=== PATIENT | female | born 1995 ===

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

== ENCOUNTER 2017-03-06 14:19 | Emergency (ER) | payer BC ==
[2017-03-06 14:27] VITALS: TEMP 98.1; O2SAT 98
[2017-03-06 15:12] LABS: RBC URINE 3 /hpf (0-3); URINE BILIRUBIN NEGATIVE (NEGATIVE); URINE BLOOD NEGATIVE (NEGATIVE); URINE COLOR Yellow (YELLOW); URINE GLUCOSE (UA) NORMAL (Normal); URINE KETONE NEGATIVE (NEGATIVE); URINE LEUKOCYTE ESTERASE NEG Leu/uL (Negative); URINE PROTEIN NEGATIVE (NEGATIVE); URINE UROBILINOGEN NORMAL mg/dL (0.2-1.0); WBC URINE 3 /hpf (0-5)
--- NOTE | 2017-03-06 15:41 | C.PDOC ---
Time Seen by Provider: 03/06/17 14:32 Chief Complaint (Nursing): Back Pain History Per: Patient Onset/Duration Of Symptoms: Days (1) Current Symptoms Are (Timing): Still Present Quality Of Discomfort: "Pain" Severity: Moderate Previous Symptoms: None Associated Symptoms: None Exacerbating Factor(s): Movement Additional History Per: Prior Records Past Medical History Reviewed: Historical Data, Nursing Documentation, Vital Signs Vital Signs: Last Vital Signs Temp 98.1 F 03/06/17 14:23 Pulse 77 03/06/17 14:23 Resp 18 03/06/17 14:23 BP 113/77 03/06/17 14:23 Pulse Ox 98 03/06/17 14:23 - Medical History PMH: Migraine Surgical History: No Surg Hx Family History: States: Unknown Family Hx - Social History Hx Tobacco Use: No Hx Alcohol Use: No Hx Substance Use: No - Immunization History Hx Tetanus Toxoid Vaccination: No Hx Influenza Vaccination: No Hx Pneumococcal Vaccination: No Review Of Systems Except As Marked, All Systems Reviewed And Found Negative. Constitutional: Negative for: Fever, Weakness Cardiovascular: Negative for: Chest Pain Respiratory: Negative for: Shortness of Breath Gastrointestinal: Negative for: Vomiting, Abdominal Pain, Diarrhea Genitourinary: Negative for: Dysuria, Hematuria Musculoskeletal: Positive for: Back Pain. Negative for: Neck Pain Skin: Negative for: Rash Neurological: Negative for: Weakness, Numbness, Seizures, Altered Mental Status Physical Exam - Physical Exam Appears: Non-toxic, No Acute Distress Skin: Normal Color, Warm, Dry, No Rash Head: Atraumatic, Normacephalic Eye(s): bilateral: Normal Inspection, PERRL, EOMI Neck: Normal ROM, Supple Cardiovascular: Rhythm Regular Respiratory: Normal Breath Sounds, No Accessory Muscle Use Gastrointestinal/Abdominal: Soft, No Tenderness, No Mass Back: Normal Inspection, Paraspinal Tenderness Extremity: Normal ROM Neurological/Psych: Oriented x3, Normal Motor, Normal Sensation ED Course And Treatment - Laboratory Results Urine POC: Negative O2 Sat by Pulse Oximetry: 98 Pulse Ox Interpretation: Normal Reassessment Condition: Improved Disposition Counseled Patient/Family Regarding: Studies Performed, Diagnosis, Need For Followup, Rx Given - Disposition Disposition: HOME/ ROUTINE Disposition Time: 15:39 Condition: IMPROVED Additional Instructions: Follow up with your doctor for further evaluation and treatment. Return to the ER if you develop abdominal pain, trouble urinating, weakness, numbness, worsening of symptoms or if you have any other concerns. Prescriptions: Cyclobenzaprine [Cyclobenzaprine HCl] 10 mg PO TID PRN #15 tab PRN Reason: Muscle Spasm Ibuprofen [Motrin Tab] 600 mg PO Q8 PRN #30 tab PRN Reason: Pain, Moderate (4-7) Instructions: Back Pain (ED) Forms: [employer] (Urdu) Print Language: CROATIAN - Clinical Impression Clinical Impression: Back strain
[2017-03-06 15:52] VITALS: BP 116/84; PULSE 74; RESP 16
== END 2017-03-06 15:52 | disposition home or self-care (01) ==
LOC: C.ER 14:19
DX: S39.012A Strain of muscle, fascia and tendon of lower back, initial encounter (principal); X58.XXXA Exposure to other specified factors, initial encounter

== ENCOUNTER 2017-05-01 18:11 | Emergency (ER) | payer BC, OTHER ==
[2017-05-01 18:15] VITALS: BMI 28.7
[2017-05-01 18:29] VITALS: BP 120/77; RESP 18; TEMP 98.2
--- NOTE | 2017-05-01 19:11 | C.PDOC ---
History Of Present Illness 22yo female, presents to the ED complaining of right lower jaw pain, present for the past 4 days. Patient reports she had an infected tooth removed this past Sunday and since the next day, she has been having right sided jaw pain, ear pain and face pain. Patient states she has been taking 2 tablets of Tylenol 2x per day with no relief of symptoms. Additionally states she has not called or visited her dentist regarding her symptoms. She states she has also recently finished her prescribed amoxicillin course. Patient denies any fever, chills. She offers no other medical complaints. Time Seen by Provider: 05/01/17 18:34 Chief Complaint (Nursing): Headache History Per: Patient History/Exam Limitations: no limitations Onset/Duration Of Symptoms: Days Current Symptoms Are (Timing): Still Present Severity: Moderate Quality: "Pain" Past Medical History Reviewed: Historical Data, Nursing Documentation, Vital Signs Vital Signs: Last Vital Signs Temp 98.2 F 05/01/17 18:20 Pulse 75 05/01/17 18:20 Resp 18 05/01/17 18:20 BP 120/77 05/01/17 18:20 Pulse Ox 100 05/01/17 19:17 - Medical History PMH: No Chronic Diseases, Migraine Surgical History: No Surg Hx Family History: States: No Known Family Hx, Unknown Family Hx - Social History Hx Tobacco Use: No Hx Alcohol Use: No Hx Substance Use: No - Immunization History Hx Tetanus Toxoid Vaccination: No Hx Influenza Vaccination: Yes Hx Pneumococcal Vaccination: No Review Of Systems Constitutional: Negative for: Fever, Chills ENT: Positive for: Mouth Pain (right sided dental pain in setting of recent tooth extraction) Physical Exam - Physical Exam Appears: Other (uncomfortable) Skin: Warm, Dry Oral Mucosa: Moist Teeth: Other (stitches noted to right lower jaw, no surrounding erythema or discharge noted.) ED Course And Treatment O2 Sat by Pulse Oximetry: 100 (RA) Pulse Ox Interpretation: Normal Medical Decision Making Medical Decision Making: Impression: 22yo female with right sided dental pain in setting of recent tooth extraction Plan: -- UPreg POC -- Toradol 30 mg IM 740 pm pt feeling decreased pain, given cold compress as well, will d/c home with motrin and dental f/u tomrrow. Disposition Counseled Patient/Family Regarding: Diagnosis, Need For Followup, Rx Given - Disposition Referrals: Clinic,Med Surg [Primary Care Provider] - Disposition: HOME/ ROUTINE Disposition Time: 19:45 Condition: STABLE Additional Instructions: Celebre con el dentista maana por la maana. [place] ibuprofeno segn lo prescrito. [place] Tylenol segn lo prescrito. Compresas fras para enfrentar cada 3-4 horas. 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 - Scribe Statement The provider has reviewed the documentation as recorded by the Roxi Winkler Provider Attestation All medical record entries made by the Roxi were at my direction and personally dictated by me. I have reviewed the chart and agree that the record accurately reflects my personal performance of the history, physical exam, medical decision making, and the department course for this patient. I have also personally directed, reviewed, and agree with the discharge instructions and disposition.
[2017-05-01 20:23] VITALS: PULSE 71; O2SAT 98
== END 2017-05-01 20:22 | disposition home or self-care (01) ==
LOC: C.ER 18:11 → SUPCPDRO 18:11 → C.ER 20:22
DX: K08.89 Other specified disorders of teeth and supporting structures (principal)
CPT/HCPCS: 96372; 99284; J1885

== ENCOUNTER 2018-01-26 22:44 | Emergency (ER) | payer SELFPAY ==
[2018-01-26 22:44] VITALS: BMI 28.7
[2018-01-26 22:53] VITALS: BP 137/87; PULSE 64; RESP 16; TEMP 98.2; O2SAT 98
[2018-01-26] MEDS ORDERED: Sodium Chloride 0.9% 1,000 ML IV ONE (23:09)
[2018-01-26] MEDS ORDERED: DiphenhydrAMINE 50 mg/ml Inj IVP STA (23:09)
[2018-01-26] MEDS ORDERED: DiphenhydrAMINE 50 mg/ml Inj ONE (23:15)
--- NOTE | 2018-01-26 23:54 | C.PDOC ---
History Of Present Illness 22 year old female with PMHx of migraines presents to the ED c/o left sided headache for the past 3-4 days. Patient reports her headache is associated with light sensitivity and nausea. Patient has not tried any pain medications at home. She denies fever, chills, neck pain, visual changes, slurred speech, facial droop, head injury. Time Seen by Provider: 01/26/18 22:50 Chief Complaint (Nursing): Headache History Per: Patient History/Exam Limitations: no limitations Onset/Duration Of Symptoms: Days Current Symptoms Are (Timing): Still Present Severity: Moderate Quality: "Pain" Preceeding Symptoms: Known Migraine Symptoms Associated Symptoms: Photophobia, Nausea Recent travel outside of the [place]: No Additional History Per: Patient Past Medical History Reviewed: Historical Data, Nursing Documentation, Vital Signs Vital Signs: Last Vital Signs Temp 98.2 F 01/26/18 22:51 Pulse 64 01/26/18 22:51 Resp 16 01/26/18 22:51 BP 137/87 01/26/18 22:51 Pulse Ox 98 01/27/18 01:54 - Medical History PMH: Migraine Surgical History: No Surg Hx Family History: States: No Known Family Hx - Social History Hx Tobacco Use: No Hx Alcohol Use: No Hx Substance Use: No - Immunization History Hx Tetanus Toxoid Vaccination: No Hx Influenza Vaccination: Yes Hx Pneumococcal Vaccination: No Review Of Systems Constitutional: Negative for: Fever, Chills Eyes: Negative for: Vision Change Respiratory: Negative for: Cough, Shortness of Breath Gastrointestinal: Positive for: Nausea. Negative for: Vomiting, Abdominal Pain , Diarrhea Skin: Negative for: Rash Neurological: Positive for: Headache. Negative for: Weakness, Numbness, Dizziness Physical Exam - Physical Exam Appears: Well, Non-toxic, In Acute Distress (in moderate pain ) Skin: Normal Color, Warm, Dry Head: Atraumatic, Normacephalic Eye(s): bilateral: Normal Inspection, PERRL, EOMI, Photophobia Oral Mucosa: Moist Neck: Normal, Normal ROM, No Midline Cervical Tenderness, Supple, Other (no meningismus ) Cardiovascular: Rhythm Regular Respiratory: Normal Breath Sounds, No Rales, No Rhonchi, No Wheezing Gastrointestinal/Abdominal: Normal Exam, Bowel Sounds, Soft, No Tenderness Extremity: Normal ROM, No Tenderness, No Swelling Neurological/Psych: Oriented x3, Normal Speech, Normal Cognition, Normal Cranial Nerves, No Cerebellar Signs, Normal Motor, Normal Sensation Gait: Steady ED Course And Treatment O2 Sat by Pulse Oximetry: 98 (ON RA) Pulse Ox Interpretation: Normal Progress Note: Plan: Patient given PO Motrin, IV reglan, IV benadryl and IV NS bolus. Reevaluation Time: 00:05 Reassessment Condition: Improved (Patient is currently resting comfortably and states her headache has resolved. Patient is well appearing and comfortable being discharged home. Rx for Fiorecet given, and patient instructed to follow up with PMD/clinic in 1-2 days. She understands she should return to ED if symptoms worsen.) Disposition Counseled Patient/Family Regarding: Diagnosis, Need For Followup, Rx Given - Disposition Referrals: [facility] [Outside] Disposition: HOME/ ROUTINE Disposition Time: 00:05 Condition: STABLE Additional Instructions: FOLLOW UP WITH YOUR DOCTOR OR CLINIC IN 1-2 DAYS USE MEDICATION NEEDED FOR HEADACHES RETURN TO ER IF SYMPTOMS WORSEN SEGUIMIENTO CON BEARD MDICO O CLNICA EN 1-2 AYERS USE MEDICAMENTO SEGN SEA NECESARIO PARA DIXIE DE TIANA VOLVER A ER SI LOS SNTOMAS EMPEORAN Prescriptions: Acetaminophen/Butalbital/Caf [Fioricet] 1 tab PO TID PRN #20 tab PRN Reason: Headache Instructions: Migraine Headache (DC) Forms: [employer] (Sinhala) Print Language: GRENADIAN - Clinical Impression Clinical Impression: Migraine - Scribe Statement The provider has reviewed the documentation as recorded by the Scribchaya Negrete All medical record entries made by the Scribe were at my direction and personally dictated by me. I have reviewed the chart and agree that the record accurately reflects my personal performance of the history, physical exam, medical decision making, and the department course for this patient. I have also personally directed, reviewed, and agree with the discharge instructions and disposition.
== END 2018-01-27 00:05 | disposition home or self-care (01) ==
LOC: C.ER 22:44
DX: G43.909 Migraine, unspecified, not intractable, without status migrainosus (principal)
CPT/HCPCS: 96361; 96374; 96375; 99284; J1200; J2765; J7030

== ENCOUNTER 2018-03-31 18:49 | Emergency (ER) | payer OTHER ==
[2018-03-31 18:49] VITALS: BMI 28.7
--- NOTE | 2018-03-31 19:15 | C.PDOC ---
History Of Present Illness 22 year old female, , presents to the ED c/o nausea and severe headache. Patient has a PMHx of migraines. Patient has not taken any medication for her symptoms. Patient denies fever, chills, visual changes, vomit, diarrhea, dysuria , hematuria. Time Seen by Provider: 03/31/18 19:15 Chief Complaint (Nursing): GI Problem History Per: Patient History/Exam Limitations: no limitations Onset/Duration Of Symptoms: Days Current Symptoms Are (Timing): Still Present Severity: Severe (headache) Recent travel outside of the [place]: No Additional History Per: Patient Past Medical History Reviewed: Historical Data, Nursing Documentation, Vital Signs Vital Signs: Last Vital Signs Temp 98.1 F 03/31/18 18:56 Pulse 79 03/31/18 18:56 Resp 19 03/31/18 18:56 BP 123/77 03/31/18 18:56 Pulse Ox 99 03/31/18 19:42 - Medical History PMH: Migraine Surgical History: No Surg Hx Family History: States: Unknown Family Hx - Social History Hx Tobacco Use: No Hx Alcohol Use: No Hx Substance Use: No - Immunization History Hx Tetanus Toxoid Vaccination: No Hx Influenza Vaccination: Yes Hx Pneumococcal Vaccination: No Review Of Systems Constitutional: Negative for: Fever, Chills Eyes: Negative for: Vision Change Cardiovascular: Negative for: Chest Pain Respiratory: Negative for: Cough, Shortness of Breath Gastrointestinal: Positive for: Nausea. Negative for: Vomiting, Abdominal Pain , Diarrhea Genitourinary: Negative for: Vaginal Discharge, Vaginal Bleeding Neurological: Positive for: Headache. Negative for: Dizziness Physical Exam - Physical Exam Appears: Non-toxic, No Acute Distress Skin: Warm, Dry Head: Normacephalic Eye(s): bilateral: Normal Inspection Neck: Supple Chest: Symmetrical Cardiovascular: Rhythm Regular Respiratory: No Rales, No Rhonchi, No Wheezing Gastrointestinal/Abdominal: Soft, No Tenderness, No Guarding, No Rebound Extremity: No Tenderness, No Swelling Extremity: Bilateral: Atraumatic, Normal Color And Temperature, Normal ROM Neurological/Psych: Oriented x3, Normal Speech Gait: Steady ED Course And Treatment - Laboratory Results Result Diagrams: 03/31/18 19:48 03/31/18 19:48 O2 Sat by Pulse Oximetry: 99 (ON RA) Pulse Ox Interpretation: Normal Progress Note: Plan: - Labs. - Iv fluids. - Tylenol 975 mg PO. - Zofran 4 mg IVP. - UA Reevaluation Time: 21:09 Reassessment Condition: Improved Disposition Counseled Patient/Family Regarding: Studies Performed, Diagnosis, Need For Followup - Disposition Referrals: [facility] [Outside] [facility] [Outside] Disposition: HOME/ ROUTINE Disposition Time: 19:15 Condition: FAIR Additional Instructions: Please return if symptoms recur Prescriptions: Nitrofurantoin Macrocrystals [Macrobid] 1 cap PO BID #14 cap Ondansetron ODT [Zofran ODT] 1 odt PO BID PRN #6 odt PRN Reason: Nausea/Vomiting Instructions: Headache, Adult (DC), - The First Month, Urinary Tract Infection, Adult (DC) Forms: [employer] (Slovak) Print Language: KAZAKH - Clinical Impression Clinical Impression: Headache, UTI (urinary tract infection) during - Scribe Statement The provider has reviewed the documentation as recorded by the Scribe Josh Negrete All medical record entries made by the Scribe were at my direction and personally dictated by me. I have reviewed the chart and agree that the record accurately reflects my personal performance of the history, physical exam, medical decision making, and the department course for this patient. I have also personally directed, reviewed, and agree with the discharge instructions and disposition.
[2018-03-31] MEDS ORDERED: Sodium Chloride 0.9% 1,000 ML IV ONE (19:16)
[2018-03-31 19:52] LABS: SQUAMOUS EPITHIAL 65 /hpf (0-5); URINE BACTERIA RARE (<OCC); URINE BILIRUBIN NEGATIVE (NEGATIVE); URINE BLOOD NEGATIVE (NEGATIVE); URINE CLARITY Hazy (Clear); URINE COLOR Amber (YELLOW); URINE GLUCOSE (UA) NORMAL (Normal); URINE LEUKOCYTE ESTERASE 3+ Leu/uL (Negative); URINE PROTEIN 1+ mg/dL (NEGATIVE); URINE UROBILINOGEN NORMAL mg/dL (0.2-1.0)
[2018-03-31 19:56] LABS: BASO # 0.1 K/uL (0.0-0.2); BASO % 0.8 % (0.0-2.0); EOS # 0.2 K/uL (0.0-0.7); EOS % 1.2 % (0.0-4.0); HEMOGLOBIN 12.7 g/dL (11.0-16.0); LYMPH # 3.2 K/uL (1.0-4.3); MEAN CELL VOLUME 88.6 fL (81.0-99.0); MEAN CORPUSCULAR HEMOGLOBIN 30.1 pg (27.0-31.0); MEAN CORPUSCULAR HGB CONC 33.9 g/dL (33.0-37.0); MONO # 1.1 K/uL (0.0-0.8); NEUT # 8.2 K/uL (1.8-7.0); NRBC % 0.2 % (0.0-2.0); RBC 4.22 Mil/uL (3.80-5.20); RED CELL DISTRIBUTION WIDTH 14.2 % (11.5-14.5); WHITE BLOOD COUNT 12.7 K/uL (4.8-10.8)
[2018-03-31 20:05] LABS: INR 1.3; PROTHROMBIN TIME 14.5 SECONDS (9.7-12.2)
[2018-03-31] MEDS ORDERED: Sodium Chloride 0.9% 1,000 ML ONE (20:10)
[2018-03-31 20:12] LABS: ALB/GLOB RATIO 1.3 (1.0-2.1); ALBUMIN 4.4 g/dL (3.5-5.0); ALT/SGPT 27 U/L (9-52); AST/SGOT 19 U/L (14-36); BLOOD UREA NITROGEN 5 mg/dL (7-17); CALCIUM 9.8 mg/dl (8.6-10.4); GFR NON-AFRICAN AMERICAN > 60
[2018-03-31 21:23] VITALS: BP 100/53; PULSE 68; RESP 22; TEMP 98.7; O2SAT 98
== END 2018-03-31 21:36 | disposition home or self-care (01) ==
LOC: C.ER 18:49
DX: O26.891 Other specified pregnancy related conditions, first trimester (principal); R51 Headache; O23.41 Unspecified infection of urinary tract in pregnancy, first trimester; Z3A.00 Weeks of gestation of pregnancy not specified
CPT/HCPCS: 80053; 81001; 84702; 85025; 85610; 85730; 86850; 86900; 87086; 96361; 96374; 99285; J2405; J7030

== ENCOUNTER 2018-11-10 19:02 | Emergency (ER) | payer OTHER ==
[2018-11-10 19:02] VITALS: BMI 28.7
--- NOTE | 2018-11-10 19:30 | C.PDOC ---
History Of Present Illness 23 year old female with Hx of migraines presents to the ER complaining of exacerbation of her migraine since last night associated with dizziness, nausea, and photophobia. Patient tried taking OTC medications with no relief. Denies thunderclap presentation, not worse headache, no head trauma,vomiting, cough, sore throat, or URI. Time Seen by Provider: 11/10/18 19:20 Chief Complaint (Nursing): Headache History Per: Patient History/Exam Limitations: no limitations Onset/Duration Of Symptoms: Other (Yesterday) Current Symptoms Are (Timing): Still Present Preceeding Symptoms: None Associated Symptoms: Photophobia Recent travel outside of the [place]: No Past Medical History Reviewed: Historical Data, Nursing Documentation, Vital Signs Vital Signs: Last Vital Signs Temp 98.0 F 11/10/18 19:14 Pulse 69 11/10/18 19:14 Resp 16 11/10/18 19:14 BP 126/82 11/10/18 19:14 Pulse Ox 97 11/10/18 19:14 - Medical History PMH: Migraine Family History: States: Unknown Family Hx - Social History Hx Tobacco Use: No Hx Alcohol Use: No Hx Substance Use: No - Immunization History Hx Tetanus Toxoid Vaccination: No Hx Influenza Vaccination: Yes Hx Pneumococcal Vaccination: No Review Of Systems Eyes: Positive for: Other (Photophobia) ENT: Negative for: Nose Congestion, Throat Pain Respiratory: Negative for: Cough Gastrointestinal: Positive for: Nausea. Negative for: Vomiting Musculoskeletal: Negative for: Neck Pain Neurological: Positive for: Headache, Dizziness. Negative for: Weakness, Numbness Physical Exam - Physical Exam Appears: Non-toxic Skin: Normal Color, Warm Head: Atraumatic, Normacephalic Eye(s): bilateral: Normal Inspection, PERRL, EOMI Nose: Normal Oral Mucosa: Moist Throat: Normal, No Erythema Neck: Normal, No Midline Cervical Tenderness, No Paracervical Tenderness, Supple Cardiovascular: Rhythm Regular Gastrointestinal/Abdominal: Normal Exam, Soft, No Tenderness Extremity: Normal ROM Extremity: Bilateral: Atraumatic Neurological/Psych: Oriented x3, Normal Speech, Normal Motor, Normal Sensation Gait: Steady ED Course And Treatment O2 Sat by Pulse Oximetry: 97 (Room air) Pulse Ox Interpretation: Normal Progress Note: IV fluids, benadryl, and reglan administered. Patient is resting comfortably in no acute distress, vitals are stable, she reports improvement of migraine, will discharge home with instructions to follow up with PMD. 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 - Scribe Statement The provider has reviewed the documentation as recorded by the Scribchaya Thompson All medical record entries made by the Scribchaya were at my direction and personally dictated by me. I have reviewed the chart and agree that the record accurately reflects my personal performance of the history, physical exam, medical decision making, and the department course for this patient. I have also personally directed, reviewed, and agree with the discharge instructions and disposition.
[2018-11-10] MEDS ORDERED: Sodium Chloride 0.9% 500 ML IV ONE (19:40)
[2018-11-10] MEDS ORDERED: DiphenhydrAMINE 50 mg/ml Inj IVP STA (19:41)
[2018-11-10] MEDS ORDERED: Sodium Chloride 0.9% 1,000 ML ONE (19:53)
[2018-11-10] MEDS ORDERED: DiphenhydrAMINE 50 mg/ml Inj ONE (20:12)
[2018-11-10 21:09] VITALS: BP 108/65; PULSE 72; RESP 20; TEMP 98
[2018-11-10 21:16] VITALS: O2SAT 97
== END 2018-11-10 21:25 | disposition home or self-care (01) ==
LOC: C.ER 19:02
DX: G43.909 Migraine, unspecified, not intractable, without status migrainosus (principal)
CPT/HCPCS: 81025; 96365; 96375; 99285; J1200; J2765; J7040